=== PATIENT | female | born 1995 | race Caucasian/White ===

== ENCOUNTER 2020-07-16 14:57 | Outpatient (CLI) | payer BC, SELFPAY ==
--- NOTE | ~2020-07-16 | US_ITS ---
EXAMINATION: US pelvic complete DATE: 07/16/2020 15:39 INDICATION: IUD placement Comparison:No prior studies for comparison. TECHNIQUE: Multiple transabdominal and endovaginal sonographic images of the pelvis performed. FINDINGS: The uterus measures 7 x 3.7 x 4.4 cm. There is an IUD in expected position. The endometrial complex measures 6 mm. The right ovary measures 3.2 x 3.2 x 2.9 cm and the left ovary measures 3.6 x 2 x 2.6 cm. There is a 2.3 cm right ovarian cyst. There are small follicles in each ovary. Normal doppler signal in both ova cris. There is no free fluid in the pelvis. There are no abnormal masses seen on either side. IMPRESSION: 1. Right ovarian cyst measuring 2.3 cm. Reviewed, dictated and finalized at location B.
== END 2020-07-16 14:58 | disposition home or self-care (01) ==
PROVIDERS: PCP Internal Medicine; Visit Provider Internal Medicine
DX: Z30.431 Encounter for routine checking of intrauterine contraceptive device (principal)
CPT/HCPCS: 76856